=== PATIENT | female | born 1990 | race Caucasian/White ===

== ENCOUNTER 2021-09-10 15:00 | Outpatient (RCR) | payer OTHER, SELFPAY | END 2021-09-10 15:45 | disposition home or self-care (01) | LOC: HO.PT 15:00 | PROVIDERS: PCP Nurse Practitioner Family; Visit Provider Obstetrics & Gynecology | DX: N94.10 Unspecified dyspareunia (principal) | CPT/HCPCS: 97110; 97112; 97140; 97161 ==

== ENCOUNTER 2022-07-01 10:00 | Outpatient (RCR) | payer OTHER, SELFPAY | END 2022-07-18 11:25 | disposition home or self-care (01) | LOC: HO.PT 10:00 | PROVIDERS: PCP Internal Medicine; Visit Provider Physician Assistant Medical | DX: N94.10 Unspecified dyspareunia (principal) | CPT/HCPCS: 97110; 97140; 97162; 97535 ==